=== PATIENT | female | born 1960 | race Two or more races ===

== ENCOUNTER 2020-12-21 05:03 | Emergency (ER) | payer OTHER ==
[~2020-12-21] VITALS: Ht 157.5 cm; Wt 99.8 kg
[2020-12-21] MEDS ORDERED: ZESTRIL10 M1 (05:17)
== END 2020-12-21 13:49 | disposition home or self-care (01) ==
LOC: ER 05:03
DX: M79.605 Pain in left leg (principal); R60.0 Localized edema